=== PATIENT | male | born 1950 | race Caucasian/White ===

== ENCOUNTER 2018-03-07 10:29 | Emergency (ER) | payer MEDICARE ==
[~2018-03-07] VITALS: Ht 172.7 cm; Wt 83.9 kg
[2018-03-07] MEDS ORDERED: SODIUM CHLORIDE 0.9% 1000ML 1,000 ML IV STA ×2 (10:31→12:04)
[2018-03-07] MEDS ORDERED: MORPHINE SULFATE INJ 4 MG/ML INJ IV STA (10:31)
[2018-03-07] MEDS ORDERED: ONDANSETRON HCL INJ 2 MG/ML VIAL IV ONE (10:45)
[2018-03-07] MEDS ORDERED: KETOROLAC TROMETHAMINE 30 MG/ML VIAL IV ONE (10:45)
[2018-03-07 10:51] LABS: BASOPHILS % 0.2 % (0.0-1.0); EOSINOPHILS # (AUTO) 0.1 (0.0-0.4); EOSINOPHILS % 0.4 % (0.0-6.0); HEMATOCRIT 39.8 % (38.2-49.6); HEMOGLOBIN 14.3 g/dL (14.0-18.0); LYMPHOCYTES % 7.9 % (18.0-39.1); MEAN CORPUSCULAR HEMOGLOBIN 31.6 pg (28-32); MEAN CORPUSCULAR HGB CONC 35.9 g/dL (31-35); MEAN CORPUSCULAR VOLUME 87.9 fL (81-99); MONOCYTES % 7.5 % (4.4-11.3); NEUTROPHILS # (AUTO) 10.7 (2.1-6.9); NEUTROPHILS % 83.4 % (38.7-80.0); PLATELET COUNT 133 x10e3/uL (140-360); RED BLOOD COUNT 4.53 x10e6/uL (4.3-5.7); RED CELL DISTRIBUTION WIDTH 12.4 % (11.7-14.4)
[2018-03-07] MEDS ORDERED: FAMOTIDINE 20 MG/2 ML VIAL IV ONE (11:00)
[2018-03-07 11:08] LABS: ALBUMIN 4.2 g/dL (3.5-5.0); ALBUMIN/GLOBULIN RATIO 1.4 (0.8-2.0); ANION GAP 17.3 mmol/L (8-16); CALCIUM 9.1 mg/dL (8.4-10.2); CREATININE, SERUM 1.5 mg/dL (0.72-1.25); POTASSIUM 3.3 mmol/L (3.5-5.1)
[2018-03-07] MEDS ORDERED: TAMSULOSIN HCL 0.4 MG CAP PO STA (11:11)
[2018-03-07] MEDS ORDERED: HYDROMORPHONE 1MG/1ML INJ IV ONE (11:15)
[2018-03-07] MEDS ORDERED: PROMETHAZINE 12.5MG/ NACL 0.9% 12.5 MG/50 ML BAG IV ONE (11:15)
--- NOTE | 2018-03-07 11:31 | Diagnostic Imaging Report ---
EXAMINATION: CT of the abdomen and pelvis without contrast. TECHNIQUE: Spiral CT images of the abdomen and pelvis were performed from the lung bases to the lesser trochanters. No intravenous contrast was given per renal stone protocol. Coronal and sagittal reformatted images were obtained. COMPARISON: None. CLINICAL HISTORY:Left flank pain starting today. DISCUSSION: ABSENCE OF INTRAVENOUS CONTRAST DECREASES SENSITIVITY FOR DETECTION OF FOCAL LESIONS AND VASCULAR PATHOLOGY. ABDOMEN/PELVIS: LOWER THORAX: Linear subsegmental atelectasis in the anterior left lower lobe . Lung bases are otherwise clear. HEPATOBILIARY: Liver size in the upper limit of normal. Normal contour. No focal lesions. No intra or extrahepatic biliary ductal dilation. GALLBLADDER: No radio-opaque stones or sludge. No wall thickening. SPLEEN: No splenomegaly. PANCREAS: No focal masses or ductal dilatation. ADRENALS: No adrenal nodules. KIDNEYS/URETERS: Borderline to mild enlargement of the left kidney, with associated moderate perinephric and periureteral stranding. Mild pelvocaliectasis. No lindsey hydronephrosis or hydroureter. No renal or ureteral calculi. No contour abnormalities. PELVIC ORGANS/BLADDER: 5 mm somewhat linear hyperdensity in the bladder lumen just past the left UVJ (series 3, image 149). Layering hyperdensity in the right posterior aspect of the bladder lumen (series 3, image 50). Dystrophic calcifications in the prostate. Calcifications in the right seminal vesicle. PERITONEUM/RETROPERITONEUM: No free air or fluid. LYMPH NODES: No intra-abdominal,retroperitoneal, pelvic or inguinal lymphadenopathy. VESSELS: Mild atherosclerotic calcification of the infrarenal abdominal aorta GI TRACT: No bowel dilation or evidence of obstruction. Appendix is well identified and normal in caliber. Intraluminal high density material in the distal ileum (for example series 3, image 126), may represent ingestion of bismuth containing antacids, as no oral contrast was given. BONES AND SOFT TISSUES: No aggressive lytic lesions. Mild degenerative disc changes predominantly at L1-L2. IMPRESSION: 1. 5 mm somewhat linear hyperdensity in the bladder lumen just past the left UVJ likely represents a recently passed stone, given the findings in the left kidney. No renal or ureteral calculi are identified. 2. Layering hyperdensity in the right posterior aspect of the bladder lumen may represent recent hematuria or tiny luminal stones. Signed by: Dr. Marco Antonio Guzman M.D. on 03/07/2018 11:27 AM
[2018-03-07 11:35] LABS: AMYLASE 37 U/L (25-125); LIPASE 9 U/L (8-78)
[2018-03-07 12:32] LABS: COLOR,URINE YELLOW (YELLOW)
[2018-03-07 12:33] LABS: BILIRUBIN,URINE NEGATIVE (NEGATIVE); CLARITY,URINE HAZY (CLEAR); KETONES,URINE TRACE (NEGATIVE); LEUKOCYTE ESTERASE ,URINE NEGATIVE (NEGATIVE); NITRITE,URINE NEGATIVE (NEGATIVE); PROTEIN,URINE DIPSTICK NEGATIVE (NEGATIVE); URINE UROBILINOGEN 0.2 mg/dL (0.2 - 1)
[2018-03-07 12:45] LABS: BACTERIA,URINE FEW /HPF; EPITHELIAL CELLS,URINE FEW /LPF; RBC,URINE 0-5 /HPF (0-5); URIC ACID CRYSTALS,URINE MANY (FEW); WBC,URINE (MAN) 0-5 /HPF (0-5)
[2018-03-07 13:27] VITALS: BP 166/104
== END 2018-03-07 13:40 | disposition home or self-care (01) ==
LOC: ER 10:29
DX: R10.32 Left lower quadrant pain (principal); R11.0 Nausea; M54.5 Low back pain; N20.1 Calculus of ureter
CPT/HCPCS: 36415; 74176; 80053; 81001; 82150; 83690; 85025; 87086; 99284; J1170; J1885; J2405; J7030